=== PATIENT | female | born 1950 | race Caucasian/White ===

== ENCOUNTER → 2017-10-17 | Outpatient (CLI) | payer MEDICARE, OTHER ==
[~2017-10-17] MED LIST: DENOSUMAB 60 MG/ML 1 ML SYRINGE SQ ONE
[2017-10-17 10:15] VITALS: BP 166/84; RESP 15; TEMP 98.6
== END | disposition home or self-care (01) ==
LOC: PROCWHC3 09:58
PROVIDERS: ATTEND Nurse Practitioner Adult Health
DX: M81.0 Age-related osteoporosis without current pathological fracture (principal)
CPT/HCPCS: 96372; J0897

== ENCOUNTER → 2018-04-30 | Outpatient (CLI) | payer MEDICARE ==
[2018-04-30 14:06] VITALS: BP 157/78; PULSE 86; RESP 16; TEMP 97.8
== END ==
LOC: PROCWHC3 13:46
PROVIDERS: ATTEND Nurse Practitioner Adult Health
DX: M81.0 Age-related osteoporosis without current pathological fracture (principal)
CPT/HCPCS: 96372; J0897

== ENCOUNTER → 2018-12-31 | Outpatient (CLI) | payer MEDICARE ==
[~2018-12-31] MED LIST changes: +DENOSUMAB 60 MG/ML 1 ML SYRINGE SQ NR; -DENOSUMAB 60 MG/ML 1 ML SYRINGE SQ ONE
[2018-12-31 13:15] VITALS: BP 159/75; PULSE 75; RESP 16; TEMP 97.7
== END | disposition home or self-care (01) ==
LOC: PROCWHC3 13:03
PROVIDERS: ATTEND Family Medicine
DX: M81.0 Age-related osteoporosis without current pathological fracture (principal)
CPT/HCPCS: 96372; J0897

== ENCOUNTER → 2019-09-30 | Outpatient (CLI) | payer MEDICARE ==
[2019-09-30 14:19] VITALS: BP 159/77; PULSE 86; RESP 16; TEMP 98.4
== END | disposition home or self-care (01) ==
LOC: PROCWHC3 14:02
PROVIDERS: ATTEND Family Medicine
DX: M81.0 Age-related osteoporosis without current pathological fracture (principal)
CPT/HCPCS: 96372; J0897

== ENCOUNTER → 2019-10-14 | Outpatient (CLI) | payer MEDICARE ==
--- NOTE | 2019-10-14 16:37 | BD ---
EXAMINATION TYPE: Axial Bone Density DATE OF EXAM: 10/14/2019 COMPARISON: NONE CLINICAL HISTORY: 68 YR OLD FEMALE......ICD-10 CODE: M85.80 DISORDER OF BONE Height: 63 Weight: 121 FRAX RISK QUESTIONS: Family History (Parent hip fracture): YES, NO HIP FX 2. Hyperthyroidism: YES RISK FACTORS HISTORY OF: Family History of Osteoporosis: YES, MOTHER NO BROKEN HIP Active: YES Postmenopausal woman: YES, IN HER EARLY 50s Hyperparathyroidism: NO Adrenal Insufficiency: NO MEDICATIONS: Thyroid Medications: YES, SYNTHROID, 27 YRS NOW Osteoporosis Medications: PROLIA, X3 YRS Additional Medications: BP MEDS, VIT D AND CALCIUM Additional History: HYPERTENSION, OSTEOARTHRITIS EXAM MEASUREMENTS: Bone mineral densitometry was performed using the [employer] System. Bone mineral density as measured about the Lumbar spine is: ----- L1-L4(G/cm2): 1.154 T Score Values are as follows: ----- L1 -1.2 ----- L2: 0.2 ----- L3: 0.6 ----- L4: -0.6 ----- L1-L4: -0.2 Bone mineral density THIS IS FIRST BONE DENSITY STUDY AT [facility] Bone mineral density about the R hip (g/cm2): 0.807 Bone mineral density about the L hip (g/cm2): 0.796 T Score values are as follows: -----R Neck: -2.5 -----L Neck: -2.7 -----R Total: -1.6 -----L Total: -1.7 Bone mineral density FIRST STUDY AT [facility] FRAX%s: THERE IS A 14.3% CHANCE FOR A MAJOR OSTEOPOROTIC FX AND A 3.9% FOR HIP.....PROBABILITY FOR FX IN 10 YRS TIME IMPRESSION: Osteoporosis (T Score less than -2.5). There is increased fracture risk and therapy is usually indicated based on age. Re-Screen 1-2 years. NOTE: T-SCORE=SD OF THE YOUNG ADULT MEAN.
== END | disposition home or self-care (01) ==
LOC: RADBDWWP 12:37
PROVIDERS: ATTEND Family Medicine
DX: M85.80 Other specified disorders of bone density and structure, unspecified site (principal)
CPT/HCPCS: 77080

== ENCOUNTER → 2020-05-25 | Outpatient (CLI) | payer MEDICARE ==
[2020-05-25 10:14] VITALS: BP 166/83; PULSE 52; RESP 16; TEMP 98.2
== END | disposition home or self-care (01) ==
LOC: PROCWHC3 09:52
PROVIDERS: ATTEND Family Medicine
DX: M81.0 Age-related osteoporosis without current pathological fracture (principal)
CPT/HCPCS: 96372; J0897

== ENCOUNTER → 2020-11-30 | Outpatient (CLI) | payer MEDICARE ==
[~2020-11-30] MED LIST changes: -DENOSUMAB 60 MG/ML 1 ML SYRINGE SQ NR; +DENOSUMAB 60 MG/ML 1 ML SYRINGE SQ ONE
[2020-11-30 09:25] VITALS: BP 159/75; PULSE 81; RESP 16; TEMP 98.9
== END ==
LOC: PROCWHC3 09:09
PROVIDERS: ATTEND Family Medicine
DX: M81.0 Age-related osteoporosis without current pathological fracture (principal); Z88.4 Allergy status to anesthetic agent; Z88.5 Allergy status to narcotic agent
CPT/HCPCS: 96372; J0897

== ENCOUNTER → 2021-06-07 | Outpatient (CLI) | payer MEDICARE ==
[~2021-06-07] MED LIST changes: +DENOSUMAB 60 MG/ML 1 ML SYRINGE SQ NR; -DENOSUMAB 60 MG/ML 1 ML SYRINGE SQ ONE
[2021-06-07 08:32] VITALS: BP 167/88; PULSE 83; RESP 16; TEMP 98.2
== END ==
LOC: PROCWHC3 08:21
PROVIDERS: ATTEND Family Medicine
DX: M81.0 Age-related osteoporosis without current pathological fracture (principal); Z88.5 Allergy status to narcotic agent; Z88.4 Allergy status to anesthetic agent
CPT/HCPCS: 96372; J0897

== ENCOUNTER → 2022-10-03 | Outpatient (CLI) | payer MEDICARE ==
[~2022-10-03] MED LIST changes: -DENOSUMAB 60 MG/ML 1 ML SYRINGE SQ NR; +DENOSUMAB 60 MG/ML 1 ML SYRINGE SQ ONE
[2022-10-03 14:29] VITALS: BP 167/89; PULSE 71; RESP 15; TEMP 97.8
== END ==
LOC: PROCWHC3 14:16
PROVIDERS: ATTEND Family Medicine
DX: M81.0 Age-related osteoporosis without current pathological fracture (principal)
CPT/HCPCS: 96372; J0897